=== PATIENT | male | born 1995 | race Caucasian/White ===

== ENCOUNTER 2020-08-12 19:30 | Emergency (ER) | payer MEDICAID ==
[~2020-08-12] VITALS: Ht 175.3 cm; Wt 75.0 kg
[~2020-08-12 19:30] MED LIST: DOXY-354 PO
[2020-08-12] MEDS ORDERED: PERTUSS(ACELL),DIPH,TET VAC/PF 0.5 ML SYRINGE IM. ONE (20:45)
[2020-08-12 21:00] VITALS: BP 119/68
== END 2020-08-12 21:20 | disposition home or self-care (01) ==
LOC: EMS 19:30
DX: S61.216A Laceration without foreign body of right little finger without damage to nail, initial encounter (principal); F17.210 Nicotine dependence, cigarettes, uncomplicated; F12.90 Cannabis use, unspecified, uncomplicated; V00.131A Fall from skateboard, initial encounter; Y93.51 Activity, roller skating (inline) and skateboarding; Y92.89 Other specified places as the place of occurrence of the external cause; Y99.8 Other external cause status
CPT/HCPCS: 90471; 90715; 99283